=== PATIENT | female | born 1985 | race Caucasian/White ===

== ENCOUNTER → 2016-11-26 | Outpatient (CLI) | payer OTHER ==
--- NOTE | 2016-11-26 17:23 | DI ---
EXAM: SHOULDER LEFT 2-3 VIEWS LOCATION OF DICTATION: [place] HISTORY: [email or web address]: DIAGNOSTIC TESTING COMPARISON: No prior studies available for comparison. FINDINGS: Normal alignment of the glenohumeral and acromioclavicular joints without dislocation or subluxation. There is normal osseous mineralization. There are no acute fractures demonstrated. The surrounding soft tissues are within normal limits. The visible lung field is clear. IMPRESSION: 1. No evidence for malalignment or acute fracture. .
--- NOTE | 2016-11-26 17:23 | DI ---
EXAM: KNEE RIGHT 2 VIEW LOCATION OF DICTATION: [place] HISTORY: [email or web address]: DIAGNOSTIC TESTING COMPARISON: No prior studies available for comparison. FINDINGS: There is normal alignment of the tibiofemoral and patellofemoral joints. There is no dislocation or subluxation. No fractures are identified. There is no significant degenerative joint disease. Normal osseous mineralization. No significant joint effusions. IMPRESSION: 1. No evidence for malalignment or acute fracture. 2. No significant degenerative joint disease. .
--- NOTE | 2016-11-26 17:24 | DI ---
EXAM: THORACIC SPINE 2 VIEW LOCATION OF DICTATION: [place] HISTORY: [email or web address].[email or web address]: DIAGNOSTIC TESTING COMPARISON: No prior studies available for comparison. TECHNIQUE: FINDINGS: No evidence for malalignment. No acute fracture or subluxation. No significant degenerative changes. Normal osseous mineralization. IMPRESSION: 1. No malalignment or acute fracture. No significant degenerative changes. .
--- NOTE | 2016-11-26 17:24 | DI ---
EXAM: LUMBAR SPINE 2-3 VIEWS LOCATION OF DICTATION: [place] HISTORY: [email or web address].[email or web address]: DIAGNOSTIC TESTING COMPARISON: No prior studies available for comparison. FINDINGS: There is normal alignment to the lumbar spine with preservation of lumbar lordosis. There is no evidence for subluxation. There are no acute fractures. There is no significant spondylosis demonstrated. The surrounding soft tissues are within normal limits. IMPRESSION: 1. No evidence for malalignment or acute fracture. 2. No significant spondylosis. .
== END ==
LOC: IMA 15:23
DX: Z02.89 Encounter for other administrative examinations (principal)